=== PATIENT | female | born 1990 | race Caucasian/White ===

== ENCOUNTER 2016-11-13 16:29 | Emergency (ER) | payer MEDICAID ==
--- NOTE | 2016-11-13 16:57 | EDPHY ---
H & P Stated Complaint: L flank pain 11wks Time Seen by Provider: 11/13/16 16:56 - Personal History LMP (Females 10-55): Current Tetanus/Diphtheria Vaccine: Yes Current Tetanus Diphtheria and Acellular Pertussis (TDAP): Yes - Medical/Surgical History Hx Asthma: No Hx Chronic Respiratory Disease: No Hx Diabetes: No Hx Cardiac Disease: No Hx Renal Disease: No Hx Cirrhosis: No Hx Alcoholism: No Hx HIV/AIDS: No Hx Splenectomy or Spleen Trauma: No - Social History Smoking Status: Current every day smoker Constitutional: Initial Vital Signs Temperature (C) 36.5 C 11/13/16 16:32 Heart Rate 94 11/13/16 16:32 Respiratory Rate 16 11/13/16 16:32 Blood Pressure 111/76 11/13/16 16:32 O2 Sat (%) 96 11/13/16 16:32 O2 Delivery Mode Room Air Allergies/Adverse Reactions: No Known Allergies Allergy (Unverified 11/13/16 16:33) Medical Decision Making - Diagnostics Imaging Results: Imaging Impressions Abdomen/Pelvis Ultrasound 11/13/16 18:14 Impression:1. 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 2. No source for left flank pain identified. 3. Normal right kidney. 4. Viable IUP. Results discussed with Dr. Watkins. Imaging: Discussed imaging studies w/ call worker person Radiologist, I viewed and interpreted images myself ED Course/Re-evaluation: CHIEF COMPLAINT: Left flank pain HISTORY OF PRESENT ILLNESS: The patient is an 11-week 26 y/o female complaining of left abdominal pain onset a few days ago that has since spread to her left flank and left suprapubic region. She was treated with antibiotics for a UTI a few weeks ago when she received confirmation of her . She is unsure of which antibiotic she was on, though it may have been Bactrim. She denies current dysuria, polyuria, fever, vomiting, or other complaints. She is otherwise healthy. REVIEW OF SYSTEMS: A 10 point review of systems was performed and is negative with the exception of the elements mentioned in the history of present illness. PHYSICAL EXAM: HR, BP, O2 Sat, RR. Temp noted General Appearance: Alert, well hydrated, appropriate, and non-toxic appearing. Head: Atraumatic without scalp tenderness or obvious injury Eyes: Pupils equal, round, reactive to light and accommodation, EOMI, no trauma , no injection. Nose: Atraumatic, no rhinorrhea, clear. Throat: Mucus membranes moist. Neck: Supple, nontender, no lymphadenopathy. Respiratory: No retractions, no distress, no wheezes, and no accessory muscle use. Lungs are clear to auscultation bilaterally. Cardiovascular: Regular rate and rhythm, no murmurs, rubs, or gallops. Good capillary refill all extremities. Gastrointestinal: Abdomen is soft, mild left-sided tenderness, non-distended, no masses, no rebound, no guarding, no peritoneal signs. Musculoskeletal: Normal active ROM of all extremities, atraumatic. Left CVA tenderness. Neurological: Alert, appropriate, and interactive. Nonfocal neuro exam. Skin: No rashes, good turgor, no nodules on palpation. Past medical history: 11 weeks Past surgical history: denies Family history: noncontributory Social history: Lives in [place]. Medicaid patient. DIFFERENTIAL DIAGNOSIS: The differential diagnosis for the patient's abdominal pain included but was not limited to pyelonephritis, complication, ovarian cyst, pelvic inflammatory disease, ovarian torsion, urinary tract infection, ectopic , cholecystitis, and appendicitis. MEDICAL DECISION MAKING: This is a healthy 26 y/o female who presents with a few-day history of left flank tenderness. She was recently treated for a UTI most likely with Bactrim. She has left CVA tenderness on exam indicating that she may have pyelonephritis from her UTI. Plan for UA. UA shows trace bacteria only. Plan for retroperitoneal abdominal US. US is unremarkable. Discussed findings with the patient. She will be discharged with instructions to follow up with her OBGYN for abdominal pain during . Return precautions given. She is comfortable with this plan. - Data Points Laboratory Results: 11/13/16 17:30 Urine Color YELLOW Urine Appearance HAZY Urine pH 5.0 (5.0-7.5) Ur Specific [place] 1.024 (1.002-1.030) Urine Protein NEGATIVE (NEGATIVE) Urine Ketones NEGATIVE (NEGATIVE) Urine Blood NEGATIVE (NEGATIVE) Urine Nitrate NEGATIVE (NEGATIVE) Urine Bilirubin NEGATIVE (NEGATIVE) Urine Urobilinogen NEGATIVE EU EU (0.2-1.0) Ur Leukocyte Esterase NEGATIVE (NEGATIVE) Urine RBC Not Reported Urine WBC 1-3 /hpf /hpf (0-3) Ur Epithelial Cells TRACE /lpf /lpf (NONE-1+) Urine Bacteria TRACE /hpf H /hpf (NONE SEEN) Urine Mucus TRACE /lpf /lpf (NONE-1+) Urine Glucose NEGATIVE (NEGATIVE) Departure - Departure Disposition: Home, Routine, Self-Care Clinical Impression: Pain of round ligament during Condition: Good Instructions: Abdominal Pain in (ED) Additional Instructions: Follow up with your OBGYN this week. Return to the ED for any worsening of condition. Referrals: CHIQUITA PERLA [Other] - As per Instructions Salud Hutchinson DO [Doctor of Osteopathy] - As per Instructions Report Scribed for: Geovanni Watkins Report Scribed by: Antonina Dent Date of Report: 11/13/16 Time of Report: 17:00
[2016-11-13 17:55] LABS: COLOR YELLOW; LEUKOCYTE ESTERASE,URINE NEGATIVE (NEGATIVE); NITRITE,URINE NEGATIVE (NEGATIVE)
[2016-11-13 18:06] LABS: BACTERIA TRACE /hpf (NONE SEEN); MUCUS TRACE /lpf (NONE-1+)
[2016-11-13 19:39] VITALS: BP 117/76; PULSE 75; RESP 18; TEMP 98.2; O2SAT 97
== END 2016-11-13 19:39 | disposition home or self-care (01) ==
DX: O26.891 Other specified pregnancy related conditions, first trimester (principal); R10.9 Unspecified abdominal pain; F17.200 Nicotine dependence, unspecified, uncomplicated; Z3A.11 11 weeks gestation of pregnancy

== ENCOUNTER → 2017-01-23 | Outpatient (CLI) | payer MEDICAID | LOC: FIMAGING 09:30 | PROVIDERS: ATTEND Obstetrics & Gynecology | DX: O99.332 Smoking (tobacco) complicating pregnancy, second trimester (principal); Z3A.21 21 weeks gestation of pregnancy ==